=== PATIENT | female | born 1950 | race Caucasian/White ===

== ENCOUNTER 2023-12-22 07:45 | Inpatient (IN) | payer OTHER ==
[~2023-12-22] VITALS: Ht 162.6 cm; Wt 61.2 kg
[~2023-12-22 07:45] MED LIST: AMOX1TAB5 PO
[2023-12-22] MEDS ORDERED: HORIZANT300 MG PO (08:44)
[2023-12-22] MEDS ORDERED: COZAAR100 MG PO (08:44)
[2023-12-22] MEDS ORDERED: LIPITOR40 M1 PO (08:44)
[2023-12-22] MEDS ORDERED: LEVOTHYROXINE50 MC1 PO (08:46)
[2023-12-22 09:13] LABS: URINE APPEARANCE Cloudy; URINE BILIRRUBIN Negative (NEGATIVE); URINE BLOOD Moderate; URINE COLOR Yellow; URINE GLUCOSE Negative (NEGATIVE); URINE LEUKOCYTE Large; URINE NITRATE Negative; URINE PROTEIN 30 (NEGATIVE); URINE UROBILINOGEN 0.2 E.U./dl
[2023-12-22 09:18] LABS: URINE BACTERIA 139.8 uL (0.0-1933); URINE EPITHELIAL CELLS 5.2 uL (0.0-38.8); URINE RBC 74.8 uL (0.0-20.8); URINE WBC 976.4 uL (0.0-23.2)
[2023-12-22 09:18] LABS: HEMATOCRIT 40.6 % (36.0-45.00); HEMOGLOBIN 13.7 g/dL (12.0-15.00); MEAN CELL VOLUME 89.8 fL (80.00-100.00); MEAN CORPUSCULAR HEMOGLOBIN 30.2 pg (27.00-32.0); MEAN CORPUSCULAR HGB CONC 33.6 g/dl (32.0-36.0); PLATELET COUNT 320 K/uL (150-450); RED BLOOD COUNT 4.52 M/uL (4.00-6.00); RED CELL DISTRIBUTION WIDTH 13.5 % (11.5-14.5)
[2023-12-22 09:47] LABS: INR 1.01; PARTIAL THROMBOPLASTIN TIME 26.1 SECONDS (22.0-34.0); PROTHROMBIN TIME 10.6 SECONDS (9.0-11.5)
[2023-12-22 09:51] LABS: ALBUMIN 3.9 gm/dL (3.4-5.0); BILIRUBIN TOTAL 0.53 mg/dL (0.3-1.2); CALCIUM 10.6 mg/dL (8.5-10.1); CREATININE SERUM 0.94 mg/dL (0.55-1.02); GFR 58.05; GLOBULINA 3.8 G/DL (2.4-3.5); POTASSIUM 4.9 mEq/L (3.5-5.1); TOTAL PROTEIN 7.7 gm/dL (6.4-8.2)
[2023-12-27] MEDS ORDERED: CEFAZOLIN SODIUM 1,000 MG VIAL ONE ×2 (06:34→09:51)
[2023-12-27] MEDS ORDERED: POVIDONE-IODINE 3 EA MED..SWAB TOP ONE (06:57)
[2023-12-27] MEDS ORDERED: KETOROLAC TROMETHAMINE 60 MG VIAL IM ONE (06:57)
[2023-12-27] MEDS ORDERED: LIDOCAINE HCL/EPINEPHRINE 10MG/ML 1% 50ML IJ ONE (06:58)
[2023-12-27] MEDS ORDERED: BUPIVACAINE HCL/PF 0.5% 30ML ML ONE (06:58)
[2023-12-27] MEDS ORDERED: TRANEXAMIC ACID 100MG/1ML (1000MG) AMPUL IV ONE (07:03)
[2023-12-27] MEDS ORDERED: LATANOPROST2.5 ML (08:01)
[2023-12-27] MEDS ORDERED: SERTRALINE HCL50 MG (08:02)
[2023-12-27] MEDS ORDERED: GABAPENTIN300 M2 (08:02)
[2023-12-27] MEDS ORDERED: ATORVASTATIN CA20 MG (08:02)
[2023-12-27] MEDS ORDERED: OxyCODONE HCL 5 MG TABLET (ROXICODONE) PO PRN (09:00)
[2023-12-27] MEDS ORDERED: ONDANSETRON HCL 2 MG/ML VIAL IV PRN (09:00)
[2023-12-27] MEDS ORDERED: GABAPENTIN 300 MG CAPSULE PO SCH (09:00)
[2023-12-27] MEDS ORDERED: CEFAZOLIN SODIUM 1,000 MG VIAL IV SCH (09:00)
[2023-12-27] MEDS ORDERED: SODIUM CHLORIDE 0.45 % 1,000 ML IV SCH (09:00)
[2023-12-27] MEDS ORDERED: MORPHINE SULFATE 4 MG/ML CARTRIDGE IV PRN (09:00)
[2023-12-27] MEDS ORDERED: APIXABAN 2.5 MG TABLET PO SCH (09:00)
[2023-12-27] MEDS ORDERED: ACETAMINOPHEN 500 MG GEL..CAP PO SCH (12:00)
[2023-12-28] MEDS ORDERED: LEVOTHYROXINE SODIUM 50 MCG TABLET PO SCH (06:00)
[2023-12-28 07:52] LABS: HEMATOCRIT 33.8 % (36.0-45.00); HEMOGLOBIN 11.4 g/dL (12.0-15.00); MEAN CELL VOLUME 88.8 fL (80.00-100.00); MEAN CORPUSCULAR HEMOGLOBIN 29.8 pg (27.00-32.0); MEAN CORPUSCULAR HGB CONC 33.6 g/dl (32.0-36.0); PLATELET COUNT 223 K/uL (150-450); RED BLOOD COUNT 3.81 M/uL (4.00-6.00)
[2023-12-28] MEDS ORDERED: ELIQUIS2.5 MG PO (08:22)
[2023-12-28] MEDS ORDERED: DUI500 PO (08:22)
[2023-12-28] MEDS ORDERED: PERCOCET 5-3251 EACH PO (08:22)
[2023-12-28] MEDS ORDERED: IRON FUM,PS/FOLIC ACID/VITC/B3 1 CAP CAPSULE PO SCH (09:00)
[2023-12-28] MEDS ORDERED: LOSARTAN POTASSIUM 100 MG TABLET PO SCH (09:00)
[2023-12-28] MEDS ORDERED: SENNOSIDES 1 TAB TABLET PO SCH (09:00)
[2023-12-28] MEDS ORDERED: Cyanocobalamin/Mecobalamin 1 TAB.SL SL SCH (13:08)
[2023-12-28] MEDS ORDERED: SOD FERRIC GLUC COMPLX/SUCROSE 62.5 MG/5 ML AMPUL IV SCH (13:08)
[2023-12-28] MEDS ORDERED: VITAMIN B COMPLEX 1 EACH PO SCH (13:08)
[2023-12-29 05:54] LABS: HEMOGLOBIN 11.6 g/dL (12.0-15.00); MEAN CELL VOLUME 88.9 fL (80.00-100.00); MEAN CORPUSCULAR HEMOGLOBIN 30.2 pg (27.00-32.0); PLATELET COUNT 231 K/uL (150-450); RED BLOOD COUNT 3.82 M/uL (4.00-6.00); RED CELL DISTRIBUTION WIDTH 13.8 % (11.5-14.5)
== END 2023-12-29 21:31 | disposition home or self-care (01) | DRG 470 ==
LOC: O/R 12-27 05:19 → SURG 12-27 07:45 → SURH 12-27 09:55 → SURG 12-27 12:00 → SURH 12-29 21:31
PROVIDERS: ADMIT Orthopaedic Surgery; ATTEND Orthopaedic Surgery
PROC: 0MNN0ZZ Release Right Knee Bursa and Ligament, Open Approach (ICD-10-PCS; 2023-12-27)
PROC: 0SRC0J9 Replacement of Right Knee Joint with Synthetic Substitute, Cemented, Open Approach (ICD-10-PCS; principal; 2023-12-27 12:00)
DX: M17.11 Unilateral primary osteoarthritis, right knee (principal); D62 Acute posthemorrhagic anemia; M22.11 Recurrent subluxation of patella, right knee

== ENCOUNTER 2024-12-20 07:45 | Inpatient (IN) | payer OTHER ==
[~2024-12-20] VITALS: Ht 162.6 cm; Wt 59.9 kg
[~2024-12-20 07:45] MED LIST changes: +ATORVASTATIN CA20 MG; +COZAAR100 MG PO; +DUI500 PO; +ELIQUIS2.5 MG PO; +GABAPENTIN300 M2; +HORIZANT300 MG PO; +LATANOPROST2.5 ML; +LEVOTHYROXINE50 MC1 PO; +LIPITOR40 M1 PO; +PERCOCET 5-3251 EACH PO; +SERTRALINE HCL50 MG
[2024-12-20] MEDS ORDERED: MEDI-MECLIZINE25 MG PO (08:36)
[2024-12-20 08:41] VITALS: BP 170/82
[2024-12-20 09:01] LABS: PH,URINE 5.5 (5.0-8.0); URINE APPEARANCE Clear; URINE BILIRRUBIN Negative (NEGATIVE); URINE BLOOD Moderate; URINE COLOR Yellow; URINE GLUCOSE Negative (NEGATIVE); URINE KETONE Negative (NEGATIVE); URINE LEUKOCYTE Large; URINE NITRATE Negative; URINE PROTEIN 30 (NEGATIVE); URINE UROBILINOGEN 0.2 E.U./dl
[2024-12-20 09:06] LABS: URINE EPITHELIAL CELLS 14.2 uL (0.0-38.8); URINE RBC 146.7 uL (0.0-20.8); URINE WBC 463.2 uL (0.0-23.2)
[2024-12-20 09:09] LABS: HEMATOCRIT 42.5 % (36.0-45.00); HEMOGLOBIN 14.2 g/dL (12.0-15.00); MEAN CORPUSCULAR HEMOGLOBIN 29.7 pg (27.00-32.0); MEAN CORPUSCULAR HGB CONC 33.4 g/dl (32.0-36.0); PLATELET COUNT 293 K/uL (150-450); RED BLOOD COUNT 4.77 M/uL (4.00-6.00); RED CELL DISTRIBUTION WIDTH 14.3 % (11.5-14.5)
[2024-12-20 09:18] LABS: URINE CAST 0.29 uL (0.0-1.40)
[2024-12-20 09:22] LABS: PARTIAL THROMBOPLASTIN TIME 25.6 SECONDS (22.0-34.0); PROTHROMBIN TIME 10.9 SECONDS (9.0-11.5)
[2024-12-20 09:52] LABS: ALBUMIN 3.6 gm/dL (3.4-5.0); BILIRUBIN TOTAL 0.44 mg/dL (0.3-1.2); CALCIUM 9.8 mg/dL (8.5-10.1); CHOL HDL RATIO 3.2 (0-5.0); CREATININE SERUM 1.08 mg/dL (0.55-1.02); GFR 49.32; POTASSIUM 4.39 mEq/L (3.5-5.1); TOTAL PROTEIN 7.6 gm/dL (6.4-8.2)
[2024-12-20 10:33] LABS: RH POSITIVE
[2024-12-25] MEDS ORDERED: KETOROLAC TROMETHAMINE 60 MG VIAL IM ONE (10:30)
[2024-12-25] MEDS ORDERED: TRANEXAMIC ACID 100MG/1ML (1000MG) AMPUL IV ONE ×2 (10:30→10:45)
[2024-12-25] MEDS ORDERED: VANCOMYCIN HCL 1,000 MG VIAL IV ONE (10:45)
[2024-12-25] MEDS ORDERED: MORPHINE SULFATE 4 MG/ML VIAL IV ONE (10:45)
[2024-12-25] MEDS ORDERED: CEFAZOLIN SODIUM 1,000 MG VIAL IV ONE (10:45)
[2024-12-25] MEDS ORDERED: ONDANSETRON HCL 2 MG/ML VIAL IV PRN (11:15)
[2024-12-25] MEDS ORDERED: SODIUM CHLORIDE 0.45 % 1,000 ML IV SCH (11:15)
[2024-12-25] MEDS ORDERED: OxyCODONE HCL 5 MG TABLET (ROXICODONE) PO PRN (11:15)
[2024-12-25] MEDS ORDERED: MORPHINE SULFATE 4 MG/ML CARTRIDGE IV PRN (11:15)
[2024-12-25] MEDS ORDERED: ACETAMINOPHEN 500 MG GEL..CAP PO SCH (12:00)
[2024-12-25] MEDS ORDERED: hydrALAZINE HCL 20 MG VIAL IV PRN (14:45)
[2024-12-25 16:00] VITALS: BP 177/69; O2SAT 97
[2024-12-25] MEDS ORDERED: CEFAZOLIN SODIUM 1,000 MG VIAL IV SCH (17:00)
[2024-12-25] MEDS ORDERED: GABAPENTIN 300 MG CAPSULE PO SCH (17:00)
[2024-12-25] MEDS ORDERED: FAMOTIDINE/PF 20 MG in 0.9 % SODIUM CHLORIDE 8 ML IV PUSH SCH (21:00)
[2024-12-26 00:02] VITALS: BP 109/56; O2SAT 99
[2024-12-26] MEDS ORDERED: LEVOTHYROXINE SODIUM 50 MCG TABLET PO SCH (06:00)
[2024-12-26 07:34] LABS: HEMATOCRIT 37.1 % (36.0-45.00); HEMOGLOBIN 12.3 g/dL (12.0-15.00); MEAN CELL VOLUME 90.2 fL (80.00-100.00); MEAN CORPUSCULAR HGB CONC 33.3 g/dl (32.0-36.0); PLATELET COUNT 247 K/uL (150-450); RED BLOOD COUNT 4.11 M/uL (4.00-6.00)
[2024-12-26] MEDS ORDERED: DUI500 PO (07:57)
[2024-12-26] MEDS ORDERED: ELIQUIS2.5 MG PO (07:57)
[2024-12-26] MEDS ORDERED: PERCOCET 5-3251 EACH PO (07:57)
[2024-12-26] MEDS ORDERED: ATORVASTATIN CALCIUM 40 MG TABLET PO SCH (09:00)
[2024-12-26] MEDS ORDERED: SENNOSIDES 1 TAB TABLET PO SCH (09:00)
[2024-12-26] MEDS ORDERED: APIXABAN 2.5 MG TABLET PO SCH (09:00)
[2024-12-26] MEDS ORDERED: LOSARTAN POTASSIUM 100 MG TABLET PO SCH (09:00)
[2024-12-26 11:45] LABS: HEMATOCRIT 37.3 % (36.0-45.00); HEMOGLOBIN 12.6 g/dL (12.0-15.00); MEAN CELL VOLUME 88.7 fL (80.00-100.00); MEAN CORPUSCULAR HEMOGLOBIN 29.9 pg (27.00-32.0); MEAN CORPUSCULAR HGB CONC 33.7 g/dl (32.0-36.0); PLATELET COUNT 245 K/uL (150-450); RED BLOOD COUNT 4.21 M/uL (4.00-6.00); RED CELL DISTRIBUTION WIDTH 14.1 % (11.5-14.5)
[2024-12-26] MEDS ORDERED: VITAMIN B COMPLEX 1 EACH PO SCH (11:56)
[2024-12-26] MEDS ORDERED: Cyanocobalamin/Mecobalamin 1 TAB.SL SL SCH (12:47)
[2024-12-26 14:26] VITALS: BP 128/80; O2SAT 99
[2024-12-26 16:00] VITALS: BP 129/57; O2SAT 99
[2024-12-27 00:21] VITALS: BP 132/66; O2SAT 97
[2024-12-27 06:57] LABS: HEMATOCRIT 35.1 % (36.0-45.00); HEMOGLOBIN 11.6 g/dL (12.0-15.00); MEAN CELL VOLUME 88.9 fL (80.00-100.00); MEAN CORPUSCULAR HEMOGLOBIN 29.4 pg (27.00-32.0); MEAN CORPUSCULAR HGB CONC 33.1 g/dl (32.0-36.0); PLATELET COUNT 222 K/uL (150-450); RED BLOOD COUNT 3.95 M/uL (4.00-6.00); RED CELL DISTRIBUTION WIDTH 13.7 % (11.5-14.5)
[2024-12-27 08:00] VITALS: BP 156/68; O2SAT 98
[2024-12-27] MEDS ORDERED: IRON FUM,PS/FOLIC ACID/VITC/B3 1 CAP CAPSULE PO SCH (09:00)
== END 2024-12-27 17:39 | DRG 470 ==
LOC: O/R 12-25 06:03 → SURG 12-25 06:03 → SURH 12-25 07:45 → SURG 12-25 12:41
PROVIDERS: ADMIT Orthopaedic Surgery; ATTEND Orthopaedic Surgery
PROC: 0SUD07Z Supplement Left Knee Joint with Autologous Tissue Substitute, Open Approach (ICD-10-PCS; 2024-12-25)
PROC: 0SRD0J9 Replacement of Left Knee Joint with Synthetic Substitute, Cemented, Open Approach (ICD-10-PCS; principal; 2024-12-25 11:30)
DX: M17.12 Unilateral primary osteoarthritis, left knee (principal); D62 Acute posthemorrhagic anemia; M22.12 Recurrent subluxation of patella, left knee; I10 Essential (primary) hypertension; E78.5 Hyperlipidemia, unspecified